=== PATIENT | male | born 1955 | race Caucasian/White ===

== ENCOUNTER 2025-07-17 12:38 | Outpatient (CLI) | payer OTHER, MEDICARE | END 2025-07-17 12:39 | disposition home or self-care (01) | LOC: NAV RAD 12:38 | PROVIDERS: ATTEND Family Medicine | DX: M54.50 Low back pain, unspecified (principal); M25.551 Pain in right hip; M47.816 Spondylosis without myelopathy or radiculopathy, lumbar region | CPT/HCPCS: 72100 ==